=== PATIENT | male | born 1985 | race Two or more races ===

== ENCOUNTER → 2019-07-09 | Outpatient (REF) | payer OTHER | LOC: M LAB REF 18:57 | PROVIDERS: ATTEND Dermatology | DX: D48.9 Neoplasm of uncertain behavior, unspecified (principal) ==

== ENCOUNTER → 2019-07-17 | Outpatient (CLI) | payer BC, OTHER ==
[2019-07-17 13:26] LABS: HEMOGLOBIN 16.7 g/dl (13.5-17.5); MEAN CORPUSCULAR HEMOGLOBIN 30.1 pg (27.0-33.0); MEAN CORPUSCULAR HGB CONC 33.4 g/dl (32.0-36.5); MEAN CORPUSCULAR VOLUME 90.1 fl (80.0-96.0); PLATELET COUNT, AUTOMATED 229 10^3/uL (150-450); RED BLOOD COUNT 5.55 10^6/uL (4.30-6.10); WHITE BLOOD COUNT 7.5 10^3/uL (4.0-10.0)
[2019-07-17 16:48] LABS: BILIRUBIN,DIRECT 0.2 MG/DL (0.0-0.2); BILIRUBIN,TOTAL 1.2 MG/DL (0.2-1.0); TOTAL PROTEIN 8.1 GM/DL (6.4-8.2)
[2019-07-17 16:49] LABS: ALBUMIN 4.3 GM/DL (3.2-5.2)
== END ==
LOC: M LAB 12:25
PROVIDERS: ATTEND Dermatology
DX: L73.9 Follicular disorder, unspecified (principal)

== ENCOUNTER → 2019-07-17 | Outpatient (REF) | payer OTHER | LOC: M LAB REF 18:21 | PROVIDERS: ATTEND Dermatology | DX: L72.0 Epidermal cyst (principal) ==

== ENCOUNTER → 2019-09-10 | Outpatient (REF) | payer OTHER | LOC: M LAB REF 09:28 | PROVIDERS: ATTEND Dermatology | DX: D22.5 Melanocytic nevi of trunk (principal) ==

== ENCOUNTER → 2019-09-25 | Outpatient (REF) | payer OTHER | LOC: M LAB REF 11:46 | PROVIDERS: ATTEND Dermatology | DX: D48.9 Neoplasm of uncertain behavior, unspecified (principal) ==

== ENCOUNTER → 2023-05-19 | Outpatient (CLI) | payer BC, OTHER | LOC: M WHC 14:04 | PROVIDERS: ATTEND Physician Assistant Medical | DX: N18.2 Chronic kidney disease, stage 2 (mild) (principal) ==

== ENCOUNTER → 2023-10-04 | Outpatient (REF) | payer BC, OTHER ==
[~2023-10-04] MED LIST: LOSA100T46
== END ==
LOC: M LAB REF 08:57
PROVIDERS: ATTEND Surgery
DX: L72.0 Epidermal cyst (principal)

== ENCOUNTER 2023-10-24 12:15 | Emergency (ER) | payer BC, OTHER ==
[~2023-10-24] VITALS: Ht 177.8 cm; Wt 113.1 kg
[2023-10-24] MEDS ORDERED: VALS1TAB67 (12:27)
[2023-10-24 12:59] LABS: BASO # 0.1 10^3/uL (0.0-0.2); BASO % 0.7 % (0.0-1.0); EOS # 0.2 10^3/uL (0.0-0.5); EOS % 2.7 % (0.0-3.0); HEMATOCRIT 46.8 % (42.0-52.0); HEMOGLOBIN 16.3 g/dl (13.5-17.5); LYMPH # 2.2 10^3/uL (1.5-5.0); LYMPH % 31.3 % (24.0-44.0); MEAN CORPUSCULAR HEMOGLOBIN 30.5 pg (27.0-33.0); MEAN CORPUSCULAR HGB CONC 34.8 g/dl (32.0-36.5); MEAN CORPUSCULAR VOLUME 87.6 fl (80.0-96.0); MONO # 0.6 10^3/uL (0.0-0.8); MONO % 9.1 % (2.0-8.0); NEUTROPHILS # 3.9 10^3/uL (1.5-8.5); NEUTROPHILS % 55.9 % (36.0-66.0); PLATELET COUNT, AUTOMATED 250 10^3/uL (150-450); RED BLOOD COUNT 5.34 10^6/uL (4.30-6.10)
[2023-10-24 13:16] LABS: INR 1.11; PARTIAL THROMBOPLASTIN TIME 29.1 SECONDS (24.8-34.2)
[2023-10-24 13:24] LABS: LIPASE 36 U/L (12-53)
[2023-10-24 13:26] LABS: ALKALINE PHOSPHATASE 73 U/L (46-116); ALT/SGPT < 9 U/L (7.0-40); AST/SGOT 18 U/L (<34); BILIRUBIN,DIRECT 0.3 MG/DL (<0.4); BILIRUBIN,TOTAL 0.7 MG/DL (0.3-1.2); BLOOD UREA NITROGEN 11 MG/DL (9-23); CALCIUM LEVEL 8.9 MG/DL (8.5-10.1); CARBON DIOXIDE LEVEL 27 MMOL/L (20-31); CHLORIDE LEVEL 105 MMOL/L (98-107); CK-MB VALUE MASS < 1.0 NG/ML (<3.6); CREATININE FOR GFR 0.79 MG/DL (0.70-1.30); GLOMERULAR FILTRATION RATE > 60.0 (>60); GLUCOSE, FASTING 90 MG/DL (60-100); SODIUM LEVEL 138 MMOL/L (136-145); TOTAL PROTEIN 7.2 G/DL (5.7-8.2)
[2023-10-24 13:31] LABS: CPK CREATINE PHOSPHOKINASE 69 U/L (46-171); MB/CK RELATIVE INDEX 1.44 (< OR =4)
[2023-10-24 15:32] LABS: CK-MB VALUE MASS < 1.0 NG/ML (<3.6)
[2023-10-24 15:36] LABS: CPK CREATINE PHOSPHOKINASE 79 U/L (46-171); MB/CK RELATIVE INDEX 1.26 (< OR =4)
[2023-10-24] MEDS ORDERED: ISOVUE-370 76% 100ML VIAL As Ordered ONE (16:50)
[2023-10-24] MEDS: NS 1,000 ML IV ONE (17:17)
[2023-10-24 18:26] VITALS: BP 150/100; TEMP 97.6; O2SAT 100
== END 2023-10-24 18:27 | disposition home or self-care (01) ==
LOC: M ED 12:15
DX: R07.89 Other chest pain (principal); R91.8 Other nonspecific abnormal finding of lung field; I10 Essential (primary) hypertension; Z88.0 Allergy status to penicillin; Z79.811 Long term (current) use of aromatase inhibitors; Z79.899 Other long term (current) drug therapy; Z98.84 Bariatric surgery status
CPT/HCPCS: 71046; 71275; 80048; 80076; 82550; 82553; 83690; 84484; 85025; 85610; 85730; 93005; 96360; 99284; Q9967

== ENCOUNTER 2024-06-06 07:35 | Emergency (ER) | payer BC, OTHER ==
[~2024-06-06] VITALS: Ht 177.8 cm; Wt 111.4 kg
[~2024-06-06 07:35] MED LIST changes: +VALS1TAB67
[2024-06-06] MEDS ORDERED: CALC-265 PO (07:42)
[2024-06-06] MEDS ORDERED: AMLO1TAB24 (07:42)
[2024-06-06 08:18] LABS: BASO % 0.3 % (0.0-1.0); EOS # 0.1 10^3/uL (0.0-0.5); EOS % 1.5 % (0.0-3.0); HEMATOCRIT 44.9 % (42.0-52.0); HEMOGLOBIN 15.5 g/dl (13.5-17.5); LYMPH # 1.7 10^3/uL (1.5-5.0); LYMPH % 20.2 % (24.0-44.0); MEAN CORPUSCULAR HEMOGLOBIN 31.8 pg (27.0-33.0); MEAN CORPUSCULAR HGB CONC 34.5 g/dl (32.0-36.5); MONO # 0.8 10^3/uL (0.0-0.8); MONO % 9.2 % (2.0-8.0); NEUTROPHILS # 5.9 10^3/uL (1.5-8.5); NEUTROPHILS % 68.5 % (36.0-66.0); PLATELET COUNT, AUTOMATED 233 10^3/uL (150-450); RED BLOOD COUNT 4.88 10^6/uL (4.30-6.10); WHITE BLOOD COUNT 8.6 10^3/uL (4.0-10.0)
[2024-06-06 08:50] LABS: LIPASE 54 U/L (12-53)
[2024-06-06 08:52] LABS: ALBUMIN 3.7 G/DL (3.2-5.2); ALKALINE PHOSPHATASE 83 U/L (40-129); ALT/SGPT 14 U/L (7.0-40); AST/SGOT 10 U/L (<34); BILIRUBIN,DIRECT 0.2 MG/DL (<0.4); BILIRUBIN,TOTAL 0.6 MG/DL (0.3-1.2); BLOOD UREA NITROGEN 16 MG/DL (9-23); CALCIUM LEVEL 9.4 MG/DL (8.5-10.1); CARBON DIOXIDE LEVEL 32 MMOL/L (20-31); CHLORIDE LEVEL 108 MMOL/L (98-107); CREATININE FOR GFR 0.91 MG/DL (0.70-1.30); GLOMERULAR FILTRATION RATE > 60.0 (>60); GLUCOSE, FASTING 83 MG/DL (60-100); POTASSIUM SERUM 4.3 MMOL/L (3.5-5.1); SODIUM LEVEL 141 MMOL/L (136-145); TOTAL PROTEIN 7.4 G/DL (5.7-8.2)
[2024-06-06] MEDS: KETOROLAC 30 MG/ML 1ML VIAL IV ONE (11:36)
[2024-06-06] MEDS: ONDANSETRON 4MG 2ML VIAL IV ONE (11:36)
[2024-06-06] MEDS ORDERED: ONDA-282 PO (13:25)
[2024-06-06] MEDS ORDERED: PROT1TAB2 PO (13:25)
[2024-06-06 13:43] VITALS: BP 122/83; TEMP 97.7; O2SAT 100
== END 2024-06-06 13:45 | disposition home or self-care (01) ==
LOC: M ED 07:35
DX: R10.9 Unspecified abdominal pain (principal); K76.0 Fatty (change of) liver, not elsewhere classified; I10 Essential (primary) hypertension; Z79.83 Long term (current) use of bisphosphonates; Z79.899 Other long term (current) drug therapy; Z98.84 Bariatric surgery status; Z88.0 Allergy status to penicillin
CPT/HCPCS: 74176; 76705; 80048; 80076; 83690; 85025; 96374; 99284; J1885; J2405

== ENCOUNTER → 2025-07-01 | Outpatient (REF) | payer OTHER, BC ==
[~2025-07-01] MED LIST changes: +AMLO1TAB24; +CALC-265 PO; +ONDA-282 PO; +PROT1TAB2 PO
[2025-07-01 18:24] LABS: CALCIUM LEVEL 9.2 MG/DL (8.5-10.1); CARBON DIOXIDE LEVEL 27 MMOL/L (20-31); CHLORIDE LEVEL 106 MMOL/L (98-107); CREATININE FOR GFR 0.89 MG/DL (0.70-1.30); GLOMERULAR FILTRATION RATE > 90.0 (>60); POTASSIUM SERUM 4.1 MMOL/L (3.5-5.1); SODIUM LEVEL 143 MMOL/L (136-145)
== END ==
LOC: M SFHCADAM 16:54 → M LABDRWAD 16:57
PROVIDERS: ATTEND Nurse Practitioner Family
DX: I10 Essential (primary) hypertension (principal)